=== PATIENT | female | born 1950 | race American Indian/Alaskan Native ===

== ENCOUNTER 2020-05-10 02:45 | Emergency (ER) | payer MEDICARE ==
[2020-05-10] MEDS ORDERED: cephALEXin 500 MG CAP PO ONE (04:44)
[2020-05-10] MEDS ORDERED: ACETAMINOPHEN 325 MG TAB PO ONE (04:44)
--- NOTE | 2020-05-10 04:45 | Emergency Department Report ---
ED General Adult HPI - General Chief complaint: Skin Rash Stated complaint: LEFT ARM SWOLLEN ITCHY/BURNING/PAIN PUI?: No Time Seen by Provider: 05/10/20 04:34 Source: patient, RN notes reviewed, old records reviewed Mode of arrival: Ambulatory Limitations: No Limitations - History of Present Illness Initial comments: The patient was evaluated in the emergency department for symptoms described in the history of present illness. He/she was evaluated in the context of the global COVID-19 pandemic, which necessitated consideration that the patient might be at risk for infection with the virus that causes COVID-19. Institutional protocols and algorithms that pertain to the evaluation of patients at risk for COVID-19 are in a state of rapid change based on information released by regulatory bodies including the CDC and federal and state organizations. These policies and algorithms were followed during the patient's care in the emergency department. Please note that these policies, procedures and recommendations changed on a rapid basis. Primary CARE doctor: Dr. Corbin This is a pleasant 69-year-old female, who is right-hand dominant, who has a history of rheumatoid arthritis, osteoarthritis, GERD, hypertension, depression, anxiety, panic attacks, fibromyalgia, and congenital pancreatitis, currently with stent, who presents to the ER today with nontraumatic redness to her left bicep. This started in the past 24 hours. She denies additional acute injuries and complaints. She has no trauma to the left arm, and describes a burning and occasionally itchy discomfort. She denies other systemic symptoms, and cannot think of any new particular allergic or inciting factors that may have caused this. She has follow-up with her primary care doctor this morning at 9:00. -: Gradual, days(s) Location: left, upper extremity Quality: burning Consistency: constant Improves with: rest Worsens with: movement - Related Data Home Medications Medication Instructions Recorded Confirmed Last Taken ALPRAZolam [Xanax TAB] 1 mg PO TID PRN 02/02/15 02/02/15 1 Day Ago ~02/01/15 Diltiazem HCl [Cartia XT] 1 tab PO DAILY 11/18/15 11/18/15 11/18/15 predniSONE [Prednisone] 11/18/15 11/18/15 Previous Rx's Medication Instructions Recorded Last Taken Type EPINEPHrine (NF) [Epipen (Nf)] 0.3 mg IM ONCE #1 syringekit 11/18/15 Unknown Rx Famotidine [Pepcid] 20 mg PO BID #10 tablet 11/18/15 Unknown Rx diphenhydrAMINE [Benadryl CAP] 50 mg PO Q8HR PRN #20 capsule 11/18/15 Unknown Rx predniSONE [Deltasone] 60 mg PO QDAY #5 tab 11/18/15 Unknown Rx cephALEXin [Keflex] 500 mg PO Q6HR #25 capsule 05/10/20 Unknown Rx Allergies Allergy/AdvReac Type Severity Reaction Status Date / Time droperidol [From Inapsine] AdvReac JITTERY Verified 09/09/14 10:34 duloxetine HCl AdvReac INCREASES Verified 09/09/14 10:34 [From Cymbalta] URINATION meclizine AdvReac Dizziness Verified 09/09/14 10:34 sulfamethoxazole AdvReac Nausea Verified 05/10/20 02:49 [From Bactrim] topiramate [From Topamax] AdvReac Unknown Verified 09/09/14 10:34 tramadol AdvReac HEART RACE Verified 09/09/14 10:35 tramadol HCl [From Ultracet] AdvReac Nausea Verified 09/09/14 10:35 trimethoprim [From Bactrim] AdvReac Nausea Verified 05/10/20 02:49 ED Review of Systems ROS: Stated complaint: LEFT ARM SWOLLEN ITCHY/BURNING/PAIN Other details as noted in HPI Comment: All other systems reviewed and negative Musculoskeletal: myalgia (Localized myalgia) Skin: rash, pruritus ED Past Medical Hx - Past Medical History Hx Hypertension: Yes Hx GERD: Yes Hx Arthritis: Yes (RHEUMATOID; OSTEOARTHRITIS) Hx Psychiatric Treatment: Yes (DEPRESSION/ ANXIETY/ PANIC ATTACK) Additional medical history: FIBROMYALGIA. PANCREATITIS. angioedema - Surgical History Hx Cholecystectomy: Yes Additional Surgical History: TUBAL LIGATION - Social History Smoking Status: Never Smoker Substance Use Type: None - Medications Home Medications: Home Medications Medication Instructions Recorded Confirmed Last Taken Type ALPRAZolam [Xanax TAB] 1 mg PO TID PRN 02/02/15 02/02/15 1 Day Ago History ~02/01/15 Diltiazem HCl [Cartia XT] 1 tab PO DAILY 11/18/15 11/18/15 11/18/15 History EPINEPHrine (NF) [Epipen (Nf)] 0.3 mg IM ONCE #1 syringekit 11/18/15 Unknown Rx Famotidine [Pepcid] 20 mg PO BID #10 tablet 11/18/15 Unknown Rx diphenhydrAMINE [Benadryl CAP] 50 mg PO Q8HR PRN #20 capsule 11/18/15 Unknown Rx predniSONE [Deltasone] 60 mg PO QDAY #5 tab 11/18/15 Unknown Rx predniSONE [Prednisone] 11/18/15 11/18/15 History cephALEXin [Keflex] 500 mg PO Q6HR #25 capsule 05/10/20 Unknown Rx ED Physical Exam - General Limitations: No Limitations General appearance: alert, in no apparent distress, obese - Head Head exam: Present: atraumatic, normocephalic - Eye Eye exam: Present: normal appearance, EOMI. Absent: nystagmus - ENT ENT exam: Present: normal exam, normal orophraynx, mucous membranes moist, normal external ear exam - Neck Neck exam: Present: normal inspection, full ROM. Absent: tenderness, meningismus - Respiratory Respiratory exam: Present: normal lung sounds bilaterally. Absent: respiratory distress, wheezes, rales, rhonchi, stridor, decreased breath sounds - Cardiovascular Cardiovascular Exam: Present: regular rate, normal rhythm, normal heart sounds. Absent: bradycardia, tachycardia, irregular rhythm, systolic murmur, diastolic murmur, rubs, gallop - GI/Abdominal GI/Abdominal exam: Present: soft. Absent: distended, tenderness, guarding, rebound, rigid, pulsatile mass - Extremities Exam Extremities exam: Present: normal inspection (Left bicep/anterior arm demonstrates induration, minimal tenderness, without palpable cord, which somewhat encircles the posterior tricep, full range of motion of the shoulder, elbow, and wrist), full ROM, pedal edema (1+ edema in the bilateral lower extremities), other (2+ pulses noted in the bilateral upper and lower extremities. There is no palpable cord. negative Homans sign. Muscular compartments are soft. The pelvis is stable.). Absent: calf tenderness - Back Exam Back exam: Present: normal inspection, full ROM. Absent: tenderness, CVA tenderness (R), CVA tenderness (L), paraspinal tenderness, vertebral tenderness - Neurological Exam Neurological exam: Present: alert, oriented X3, normal gait, other (No facial droop. Tongue midline. Extraocular movements intact bilaterally. Facial sensation intact to light touch in V1, V2, V3 distribution bilaterally. 5 and a 5 strength in 4 extremities. Sensation intact to light touch in 4 extremities.). Absent: motor sensory deficit - Psychiatric Psychiatric exam: Present: normal affect, normal mood - Skin Skin exam: Present: warm, rash (Macular blanching induration noted in the left anterior, medial arm), erythema. Absent: cyanosis, diaphoretic, urticaria, vesicles, petechiae, pallor, abrasion, ecchymosis ED Course Vital Signs 05/10/20 02:50 Temperature 97.9 F Pulse Rate 67 Respiratory 16 Rate Blood Pressure 150/76 O2 Sat by Pulse 100 Oximetry ED Medical Decision Making - Lab Data Vital Signs 05/10/20 02:50 Temperature 97.9 F Pulse Rate 67 Respiratory 16 Rate Blood Pressure 150/76 O2 Sat by Pulse 100 Oximetry - Medical Decision Making Differential diagnosis, including but not limited to: Cellulitis, localized allergic reaction Assessment and plan: 69-year-old female, who denies DVT and pulmonary embolism risk factors, who is right-hand dominant, presenting with localized anterior medial erythema and induration to her left bicep and tricep, full range of motion to the joints, soft muscular compartments, neurovascular intact, with probable early mild cellulitis. Do not suspect upper extremity DVT. Do not suspect systemic illness or invasive infection. Patient denies historical factors that might contribute to an allergic presentation. Warm compresses, Tylenol, as needed Benadryl and Pepcid, patient can follow-up with her outpatient primary care doctor later on today, we will initiate Keflex therapy. Patient counseled on the aforementioned. Return precautions are reviewed. Critical care attestation.: If time is entered above; I have spent that time in minutes in the direct care of this critically ill patient, excluding procedure time. ED Disposition Clinical Impression: Left arm cellulitis Disposition: -01 TO HOME OR SELFCARE Is pt being admited?: No Does the pt Need Aspirin: No Condition: Good Instructions: Cellulitis, Adult Additional Instructions: Apply warm compresses as often and as needed to the left upper extremity. Patient may take Tylenol/acetaminophen 650 mg by mouth, every 4-6 hours as needed for pain, maximum daily dose of Tylenol/acetaminophen to not exceed 3 g per 24 hours. Patient may also take Benadryl/diphenhydramine, 50 mg by mouth as needed for itching, every 6 hours. Patient may take Pepcid/famotidine, 20 mg by mouth, every 12-24 hours, as needed for itching. Please follow-up with your primary care doctor within the next 3 to 5 days. Please return to the emergency room right away with new pain, worsened pain, migration of pain, increasing redness, pus, streaking, fevers and chills, tingling, numbness, weakness, or any new, worsened or different symptoms not present on the initial emergency room evaluation. Referrals: JANIE WALKER JR, MD [Primary Care Provider] - 3-5 Days
[2020-05-10] MEDS ORDERED: FAMOTIDINE 20 MG TAB PO ONE (04:50)
[2020-05-10 04:55] VITALS: BP 138/78
== END 2020-05-10 05:12 | disposition home or self-care (01) ==
LOC: ED 02:45
DX: L03.114 Cellulitis of left upper limb (principal); I10 Essential (primary) hypertension; F32.9 Major depressive disorder, single episode, unspecified; F41.9 Anxiety disorder, unspecified; K21.9 Gastro-esophageal reflux disease without esophagitis; Z79.899 Other long term (current) drug therapy; Z88.2 Allergy status to sulfonamides; Z88.8 Allergy status to other drugs, medicaments and biological substances; Z98.51 Tubal ligation status
CPT/HCPCS: 99281

== ENCOUNTER 2020-07-23 08:39 | Emergency (ER) | payer MEDICARE ==
[2020-07-23 09:21] VITALS: BP 152/87
[2020-07-23 12:06] LABS: Bilirubin,Urine NEG (Negative); Blood,Urine NEG (Negative); Color,Urine Yellow (Yellow); Mucus,Urine FEW /HPF; Protein,Urine <15 mg/dL mg/dL (Negative)
[2020-07-23 12:23] LABS: Basophils # (Auto) 0.1 K/mm3 (0.0-0.1); Basophils % (Auto) 0.4 % (0.0-1.8); Eosinophils # (Auto) 0.3 K/mm3 (0.0-0.4); Eosinophils % (Auto) 1.9 % (0.0-4.3); Hematocrit 43.2 % (30.3-42.9); Hemoglobin 14.2 gm/dl (10.1-14.3); Lymphocytes # (Auto) 3.5 K/mm3 (1.2-5.4); Lymphocytes % (Auto) 23.9 % (13.4-35.0); Mean Corpuscular HGB Conc 33 % (30-34); Mean Corpuscular Volume 82 fl (79-97); Monocytes # (Auto) 0.9 K/mm3 (0.0-0.8); Monocytes % (Auto) 5.9 % (0.0-7.3); Platelet Count 325 K/mm3 (140-440); Red Blood Count 5.24 M/mm3 (3.65-5.03); Red Cell Distribution Width 13.9 % (13.2-15.2)
[2020-07-23 12:43] LABS: Alanine Aminotransferase 29 units/L (7-56); Albumin 4.7 g/dL (3.9-5); Blood Urea Nitrogen 13 mg/dL (7-17); Calcium 9.5 mg/dL (8.4-10.2); Hemolysis Index 17
[2020-07-23 12:44] LABS: BUN/Creatinine Ratio 22
[2020-07-23] MEDS ORDERED: ONDANSETRON 4 MG/2 ML INJ IV ONE (13:17)
[2020-07-23] MEDS ORDERED: KETOROLAC 30 MG/1 ML INJ IV ONE (13:17)
[2020-07-23] MEDS ORDERED: ONDANSETRON 4 MG/2 ML INJ IM ONE (16:12)
== END 2020-07-23 16:32 | disposition home or self-care (01) ==
LOC: ED 08:39
DX: R10.84 Generalized abdominal pain (principal); R11.0 Nausea; I10 Essential (primary) hypertension; K21.9 Gastro-esophageal reflux disease without esophagitis; M19.91 Primary osteoarthritis, unspecified site; Z90.49 Acquired absence of other specified parts of digestive tract; Z79.899 Other long term (current) drug therapy; Z88.8 Allergy status to other drugs, medicaments and biological substances
CPT/HCPCS: 36415; 74177; 80053; 81001; 83690; 84484; 85025; 93005; 96372; 96374; 99284; J1885; J2405; Q9967